=== PATIENT | male | born 1970 | race African-American/Black ===

== ENCOUNTER 2020-07-28 14:50 | Emergency (ER) | payer OTHER ==
[~2020-07-28] VITALS: Ht 175.3 cm; Wt 98.0 kg
[2020-07-28] MEDS ORDERED: NITROGLYCERIN 0.4MG TABLET SL SL PRN (16:15)
[2020-07-28 16:42] LABS: BASOPHILS % 0.5 % (0.0-2.0); CHLORIDE 98 mEq/L (98-107); EOSINOPHILS % 1.3 % (0.0-5.0); HEMATOCRIT. 42.3 % (42.0-52.0); HEMOGLOBIN. 14.6 g/dL (14.0-18.0); LYMPHOCYTES % 24.7 % (20.0-50.0); MEAN CORPUSCULAR HEMOGLOBIN 27.6 pg (28.0-32.0); MEAN CORPUSCULAR VOLUME 80.1 fL (80.0-94.0); MEAN PLATELET VOLUME 9.6 fl (7.4-10.4); MONOCYTES % 4.9 % (2.0-8.0); NEUTROPHILS % 68.6 % (40.0-76.0); PLATELET 171 x1000/uL (130-400); RED BLOOD CELL COUNT 5.28 mill/uL (4.7-6.1); RED CELL DISTRIBUTION WIDTH 14.2 % (11.6-14.6)
[2020-07-28 17:35] VITALS: BP 170/95
[2020-07-28] MEDS ORDERED: ASPIRIN 81MG TABLET PO NR (18:45)
== END 2020-07-28 19:28 | disposition left against medical advice (07) ==
LOC: ER 14:50 → CANBEDREQ 20:00
DX: R07.89 Other chest pain (principal); M54.2 Cervicalgia; R06.02 Shortness of breath
CPT/HCPCS: 36415; 71045; 80048; 84484; 85025; 93005; 99284; Z7610

== ENCOUNTER 2021-07-02 11:35 | Inpatient (IN) | payer OTHER ==
[~2021-07-02] VITALS: Ht 175.3 cm; Wt 105.2 kg
[2021-07-02] MEDS ORDERED: IOHEXOL-350 100 ML BOTTLE ONE (12:14)
[2021-07-02] MEDS ORDERED: *NO ASPIRIN X 24 HOURS XX SCH (12:15)
[2021-07-02] MEDS ORDERED: ALTEPLASE 81 MG in CONTAINER,EMPTY 1 BAG IV SCH (12:15)
[2021-07-02] MEDS ORDERED: ALTEPLASE 100MG/VIAL IV SCH (12:15)
[2021-07-02 12:29] LABS: BASOPHILS % 0.6 % (0.0-2.0); EOSINOPHILS % 1.3 % (0.0-5.0); HEMATOCRIT. 39.5 % (42.0-52.0); HEMOGLOBIN. 13.3 g/dL (14.0-18.0); LYMPHOCYTES % 22.3 % (20.0-50.0); MEAN CORPUSCULAR HEMOGLOBIN 27.1 pg (28.0-32.0); MEAN CORPUSCULAR VOLUME 80.4 fL (80.0-94.0); MEAN PLATELET VOLUME 9.7 fl (7.4-10.4); MONOCYTES % 6.2 % (2.0-8.0); NEUTROPHILS % 69.6 % (40.0-76.0); PLATELET 172 x1000/uL (130-400); RED BLOOD CELL COUNT 4.91 mill/uL (4.7-6.1)
[2021-07-02 12:32] LABS: CLARITY URINE CLEAR (CLEAR); COLOR URINE YELLOW (YELLOW); KETONES URINE NEGATIVE (NEGATIVE); LEUKOCYTE ESTERASE URINE NEGATIVE (NEGATIVE); NITRITE URINE NEGATIVE (NEGATIVE); OCCULT BLOOD URINE NEGATIVE (NEGATIVE); PH URINE 8.5 (4.5-8.0); PROTEIN URINE NEGATIVE (NEGATIVE); SPECIFIC GRAVITY URINE 1.014 (1.005-1.030); UROBILINOGEN URINE 0.2 E.U./dL (0.2-1.0)
[2021-07-02 12:35] LABS: CHLORIDE 101 mEq/L (98-107)
[2021-07-02 12:39] LABS: ETHANOL BLOOD < 10 mg/dL
[2021-07-02 14:05] LABS: *BENZODIAZEPINES SCREEN URINE NEGATIVE (NEGATIVE); CANNABINOID URINE SCREEN NEGATIVE (NEGATIVE); PHENCYCLIDINE URINE SCREEN NEGATIVE (NEGATIVE)
[2021-07-02 14:07] LABS: *AMPHETAMINES SCREEN URINE NEGATIVE (NEGATIVE); OPIATES URINE SCREEN NEGATIVE (NEGATIVE)
[2021-07-02 14:08] LABS: *COCAINE SCREEN URINE NEGATIVE (NEGATIVE); METHADONE URINE SCREEN NEGATIVE (NEGATIVE)
[2021-07-02 14:14] LABS: *BARBITURATES SCREEN URINE NEGATIVE (NEGATIVE)
[2021-07-02] MEDS ORDERED: CLONIDINE 0.1MG TABLET PO PRN (15:00)
[2021-07-02] MEDS ORDERED: ONDANSETRON HCL 4MG/2ML INJ IV PRN (15:00)
[2021-07-02] MEDS ORDERED: ACETAMINOPHEN 325MG TABLET PO PRN ×2 (15:00)
[2021-07-02] MEDS ORDERED: IPRATROPIUM/ALBUTEROL 0.5-3(2.5)MG/3ML NEB NEB PRN (15:00)
[2021-07-02] MEDS ORDERED: MAGNESIUM/ALUMINUM HYDROXIDE/SIMETHICONE 30ML UDC PO PRN (15:00)
[2021-07-02] MEDS ORDERED: DOCUSATE SODIUM 100MG CAPSULE PO PRN (15:00)
[2021-07-02] MEDS ORDERED: NITROGLYCERIN 0.4MG TABLET SL SL PRN (15:00)
[2021-07-02] MEDS ORDERED: GUAIFENESIN 200MG/10ML SUGAR FREE UDC PO PRN (15:00)
[2021-07-02] MEDS ORDERED: ZOLPIDEM TARTRATE 5MG TABLET PO PRN (15:00)
[2021-07-02] MEDS: PANTOPRAZOLE SODIUM 40 MG/VIAL IV SCH (15:27)
[2021-07-02 16:16] LABS: FOLIC ACID (FOLATE) SERUM 19.2 ng/mL (>5.38)
[2021-07-02] MEDS: ATORVASTATIN CALCIUM 40MG TABLET PO SCH (21:00)
[2021-07-02] MEDS ORDERED: POTASSIUM CHLORIDE 20MEQ TABLET SR PO NR (21:00)
[2021-07-02] MEDS ORDERED: KCL 20MEQ/100ML PREMIX 100 ML IV NR (21:30)
[2021-07-03 06:28] LABS: CHLORIDE 106 mEq/L (98-107)
[2021-07-03 06:29] LABS: BASOPHILS % 0.5 % (0.0-2.0); EOSINOPHILS % 1.3 % (0.0-5.0); HEMATOCRIT. 37.1 % (42.0-52.0); HEMOGLOBIN. 12.9 g/dL (14.0-18.0); LYMPHOCYTES % 20.7 % (20.0-50.0); MEAN CORPUSCULAR VOLUME 80.7 fL (80.0-94.0); MEAN PLATELET VOLUME 9.6 fl (7.4-10.4); MONOCYTES % 8.8 % (2.0-8.0); NEUTROPHILS % 68.7 % (40.0-76.0); PLATELET 187 x1000/uL (130-400); RED BLOOD CELL COUNT 4.59 mill/uL (4.7-6.1); RED CELL DISTRIBUTION WIDTH 15.8 % (11.6-14.6)
[2021-07-03 06:37] LABS: CREATINE KINASE 120 IU/L (39-308); PHOSPHORUS 2.9 mg/dL (2.5-4.9)
[2021-07-03 06:42] LABS: CREATINE KINASE MB FRACTION 1.1 ng/mL (0.5-3.6)
[2021-07-03] MEDS: PANTOPRAZOLE SODIUM 40 MG/VIAL IV SCH ×2 (11:58→12:43)
[2021-07-03 14:00] VITALS: BP 147/88
[2021-07-03 14:47] VITALS: BP 147/88
[2021-07-03] MEDS ORDERED: AMLO10TA80 PO (15:46)
[2021-07-03] MEDS ORDERED: OLME1TAB29 PO (15:48)
[2021-07-03 16:00] VITALS: BP 140/81
[2021-07-03 20:00] VITALS: BP 140/85
[2021-07-03] MEDS: ATORVASTATIN CALCIUM 40MG TABLET PO SCH (21:00)
[2021-07-04] VITALS: BP 113/66
[2021-07-04 04:00] VITALS: BP 149/93
[2021-07-04 08:00] VITALS: BP 129/85
[2021-07-04] MEDS ORDERED: CLOPIDOGREL 75MG TABLET PO SCH (10:00)
[2021-07-04] MEDS ORDERED: AMLODIPINE 5MG TABLET PO SCH (10:00)
[2021-07-04 12:00] VITALS: BP 142/88
[2021-07-04 16:00] VITALS: BP 147/97
[2021-07-05] MEDS ORDERED: FAMOTIDINE 20MG/2ML VIAL IV SCH (09:00)
== END 2021-07-04 19:55 | disposition left against medical advice (07) | DRG 62 ==
LOC: ER 11:35 → EDBEDREQTM 13:25 → EDBEDREQSVC 13:25 → EDBEDREQ 13:25 → MICUSO 14:03 → EDBEDREQ 14:08 → EDBEDREQTM 14:08 → EDBEDREQDT 07-03 07:07 → EDBEDREQSVC 07-03 07:07 → EDBEDREQTM 07-03 07:07 → 5WST 07-03 14:20
PROVIDERS: ADMIT Internal Medicine; ATTEND Internal Medicine
DX: I63.9 Cerebral infarction, unspecified (principal); G81.94 Hemiplegia, unspecified affecting left nondominant side; E66.9 Obesity, unspecified; E78.00 Pure hypercholesterolemia, unspecified; E87.6 Hypokalemia; D64.9 Anemia, unspecified; I10 Essential (primary) hypertension; Z20.822 Contact with and (suspected) exposure to COVID-19; R29.810 Facial weakness; Z68.34 Body mass index [BMI] 34.0-34.9, adult; Z91.19 Patient's noncompliance with other medical treatment and regimen
CPT/HCPCS: 36415; 70496; 70498; 70551; 71045; 80053; 80061; 80305; 80320; 81003; 82550; 82553; 82607; 82746; 82962; 83036; 83540; 83550; 83735; 84100; 84443; 84484; 85025; 87426; 93005; 93306; 93970; 97165; 99291; C9113; J2997; J3480; J7060; Q9967; G0480